=== PATIENT | female | born 1995 | race Caucasian/White ===

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

== ENCOUNTER 2017-03-28 09:41 | Emergency (ER) | payer OTHER ==
[~2017-03-28] VITALS: Ht 170.1 cm; Wt 98.9 kg
== END 2017-03-28 11:30 | disposition home or self-care (01) ==
LOC: ED 09:41
DX: Z32.02 Encounter for pregnancy test, result negative (principal)

== ENCOUNTER 2018-06-18 10:34 | Emergency (ER) | payer BC ==
[~2018-06-18] VITALS: Ht 170.1 cm; Wt 113.4 kg
== END 2018-06-18 11:42 | disposition home or self-care (01) ==
LOC: ED 10:34
DX: S91.114A Laceration without foreign body of right lesser toe(s) without damage to nail, initial encounter (principal); Z88.6 Allergy status to analgesic agent; Z79.899 Other long term (current) drug therapy; W26.8XXA Contact with other sharp object(s), not elsewhere classified, initial encounter; Y93.89 Activity, other specified; Y92.89 Other specified places as the place of occurrence of the external cause; Y99.8 Other external cause status